=== PATIENT | female | born 1960 | race Caucasian/White ===

== ENCOUNTER 2021-05-23 04:50 | Day surgery (SDC) | payer BC ==
[2021-05-23 10:36] VITALS: BMI 35.9
[2021-05-23 12:17] VITALS: TEMP 98
[2021-05-23 12:59] VITALS: BP 136/78; PULSE 67
== END 2021-05-23 13:15 | disposition home or self-care (01) ==
LOC: JASU-ENDO 04:50
PROVIDERS: ATTEND Internal Medicine Gastroenterology
PROC: 0DBN8ZX Excision of Sigmoid Colon, Via Natural or Artificial Opening Endoscopic, Diagnostic (ICD-10-PCS; 2021-05-23)
PROC: 0DBM8ZX Excision of Descending Colon, Via Natural or Artificial Opening Endoscopic, Diagnostic (ICD-10-PCS; principal; 2021-05-23 11:00)
DX: Z12.11 Encounter for screening for malignant neoplasm of colon (principal); D12.4 Benign neoplasm of descending colon; D12.5 Benign neoplasm of sigmoid colon; K57.30 Diverticulosis of large intestine without perforation or abscess without bleeding; K64.8 Other hemorrhoids
CPT/HCPCS: 88305-TC

== ENCOUNTER 2022-03-21 19:03 | Emergency (ER) | payer OTHER, BC ==
[2022-03-21 19:40] VITALS: BP 162/75; PULSE 79; TEMP 98.2; BMI 35.5
[2022-03-21] MEDS ORDERED: ACETAMINOPHEN 500 MG TABLET (FP) PO ONE (20:17)
[2022-03-21] MEDS ORDERED: DIPHTH,PERTUSS(ACELL),TET 0.5 ML DISP.SYRIN IM ONE ×2 (20:40→21:43)
[2022-03-21] MEDS ORDERED: ACETAMINOPHEN 325 MG TABLET (FP) ONE (21:43)
== END 2022-03-21 23:53 | disposition home or self-care (01) ==
LOC: JER 19:03
PROC: 3E0234Z Introduction of Serum, Toxoid and Vaccine into Muscle, Percutaneous Approach (ICD-10-PCS; principal; 2022-03-21)
DX: S39.012A Strain of muscle, fascia and tendon of lower back, initial encounter (principal); S00.81XA Abrasion of other part of head, initial encounter; S60.312A Abrasion of left thumb, initial encounter; M54.2 Cervicalgia; W19.XXXA Unspecified fall, initial encounter
CPT/HCPCS: 70450-TC; 70486-TC; 72100-TC-FY; 72125-TC; 73110-TC-LT-FY; 73130-TC-LT-FY; 73562-TC-RT-FY; 90715; 99284-25

== ENCOUNTER 2022-09-17 16:12 | Emergency (ER) | payer BC, OTHER ==
[2022-09-17 17:49] VITALS: BP 145/83; PULSE 75; RESP 18; TEMP 98.1; BMI 37.8
[2022-09-17] MEDS ORDERED: ACETAMINOPHEN 500 MG TABLET (FP) PO ONE (19:14)
[2022-09-17] MEDS ORDERED: KETOROLAC TROMETHAMINE 30 MG/1 ML VIAL IM ONE (19:14)
[2022-09-17] MEDS ORDERED: ACETAMINOPHEN 500 MG TABLET (FP) ONE (19:16)
[2022-09-17] MEDS ORDERED: KETOROLAC TROMETHAMINE 30 MG/1 ML VIAL ONE (19:16)
== END 2022-09-17 23:35 | disposition home or self-care (01) ==
LOC: JER 16:12 → JERFT 16:12
PROC: 3E0233Z Introduction of Anti-inflammatory into Muscle, Percutaneous Approach (ICD-10-PCS; principal; 2022-09-17)
DX: M79.662 Pain in left lower leg (principal); M79.661 Pain in right lower leg
CPT/HCPCS: 93970-TC; 99284-25